=== PATIENT | female | born 1960 | race Caucasian/White ===

== ENCOUNTER 2017-12-21 10:01 | Day surgery (SDC) | payer MEDICAID ==
[~2017-12-21] VITALS: Ht 163.8 cm; Wt 90.7 kg
[2017-12-21] MEDS ORDERED: LACTATED RINGERS 1,000 ML IV SCH (11:00)
[2017-12-21] MEDS ORDERED: PANT20TA3 PO (11:51)
[2017-12-21] MEDS ORDERED: ERGO400C PO (11:51)
[2017-12-21] MEDS ORDERED: TRAZ-213 PO (11:51)
[2017-12-21] MEDS ORDERED: CLON2TAB11 PO (11:51)
[2017-12-21] MEDS ORDERED: SERT25TA PO (11:51)
[2017-12-21] MEDS ORDERED: DIAZ2TAB PO (11:51)
[2017-12-21] MEDS ORDERED: PROPOFOL 200MG/20ML VIAL IV ONE ×2 (12:33→13:05)
[2017-12-21] MEDS ORDERED: MIDAZOLAM HCL 2 MG/2 ML VIAL ONE ×2 (12:33→12:51)
== END 2017-12-21 14:15 | disposition home or self-care (01) ==
LOC: OR 10:01
PROVIDERS: ATTEND Internal Medicine Gastroenterology
DX: Z12.11 Encounter for screening for malignant neoplasm of colon (principal); K63.89 Other specified diseases of intestine; F41.9 Anxiety disorder, unspecified; Z79.899 Other long term (current) drug therapy; G89.29 Other chronic pain
CPT/HCPCS: 45378; J2250; J7120; J2704